=== PATIENT | female | born 1990 | race Hispanic/Latino ===

== ENCOUNTER 2017-06-18 01:41 | Emergency (ER) | payer BC ==
[~2017-06-18] VITALS: Ht 154.9 cm; Wt 69.9 kg
[~2017-06-18 01:41] MED LIST: DICYCLOMINE HCL20 MG PO; LINZESS PO; PANTOPRAZOLE SO40 MG PO; ZOFRAN ODT4 MG PO
[2017-06-18] MEDS ORDERED: SODIUM CHLORIDE 0.9% 1000ML 1,000 ML ONE ×2 (02:15→03:20)
[2017-06-18] MEDS ORDERED: MORPHINE SULFATE 4 MG/ML SYR IV ONE (02:15)
[2017-06-18] MEDS ORDERED: PROMETHAZINE HCL (IM) 25 MG/ML VIAL IM ONE (02:15)
[2017-06-18] MEDS ORDERED: PYRIDIUM100 MG PO (04:22)
[2017-06-18] MEDS ORDERED: PHENERGAN SUPP25 MG PO (04:22)
[2017-06-18] MEDS ORDERED: MACROBID 100 M100 MG PO (04:22)
[2017-06-18 04:38] VITALS: BP 149/80
== END 2017-06-18 04:30 | disposition home or self-care (01) ==
LOC: FSED 01:41
DX: R10.11 Right upper quadrant pain (principal); R10.31 Right lower quadrant pain; M54.5 Low back pain; N30.90 Cystitis, unspecified without hematuria; K58.0 Irritable bowel syndrome with diarrhea
CPT/HCPCS: 74176; 80048; 81025; 85025; 96360; 96365; 96374; 99284; J2270; J7030

== ENCOUNTER 2018-11-02 17:07 | Emergency (ER) | payer BC ==
[~2018-11-02] VITALS: Ht 154.9 cm; Wt 49.9 kg
[~2018-11-02 17:07] MED LIST changes: +MACROBID 100 M100 MG PO; +PHENERGAN SUPP25 MG PO; +PYRIDIUM100 MG PO
--- OUTSIDE RECORDS SUMMARY | 2018-11-02 17:09 | XMS REPORT | Summary of Care ---
Author Author Jess Gudino R.N. Organization Unknown Address Unknown Phone Unavailable Care Team Providers Care Electroformer Name Role Phone Jess Gudino R.N. Unavailable Unavailable OB[facility] N.P., ABBEY Unavailable Unavailable Unavailable Unavailable Functional Status Name Dates Details Functional status health issues are not documented Status: Name Dates Details Cognitive status health issues are not documented Status: Problems Name Dates Details H. pylori infection (041.86, A04.8) Status: Active Constipation (564.00, K59.00) Status: Active Constipation (564.00, K59.00) Status: Active Nausea and vomiting (787.01, R11.2) Status: Active Abdominal pain (789.00, R10.9) Status: Active Diarrhea (787.91, R19.7) Status: Active Acid reflux disease (530.81, K21.9) Status: Active Medications Name Dates Details Ondansetron HCl - 4 MG Oral Tablet TAKE EVERY 4-6 HOURS NEED FOR NAUSEA AND VOMITING Active Tylenol with Codeine #3 300-30 MG Oral Tablet TAKE EVERY 4-6 HOURS NEEDED FOR PAIN * Refills: 0 Active Dicyclomine HCl - 20 MG Oral Tablet TAKE 1 TABLET three to four times daily * Quantity: 120 Refills: 6 OBONYANO N.P., ABBEY * Start : 16-Jul-2016 Active Allergies and Adverse Reactions Name Dates Details No Known Drug Allergies (Allergy) Status: Active Past Medical History Name Dates Details History of gastritis (V12.79, Z87.19) Status: Resolved History of Helicobacter infection (V12.09, Z86.19) Status: Resolved History of Mini stroke (434.91, I63.9) Status: Resolved History of ovarian cyst (V13.29, Z87.42) Status: Resolved Procedures Procedure Dates Details Procedures not documented Immunization Name Dates Details Immunizations not documented Family History Name Dates Details Family history of cardiac disorder (V17.49, Z82.49) Status: Active Family history of cerebrovascular accident (CVA) (V17.1, Z82.3) Status: Active Name Dates Details Family history of systemic lupus erythematosus (V19.4, Z82.69) Status: Active Family history of diabetes mellitus (V18.0, Z83.3) Status: Active Family history of hypertension (V17.49, Z82.49) Status: Active Family history of High cholesterol (272.0, E78.00) Status: Active Family history of cerebrovascular accident (CVA) (V17.1, Z82.3) Status: Active Family history of Ulcer (707.9, L98.499) Status: Active Name Dates Details Family history of diabetes mellitus (V18.0, Z83.3) Status: Active Family history of hypertension (V17.49, Z82.49) Status: Active Social History Name Dates Details - Status: Name Dates Details Never smoker Vital Signs Date Test Result Details No Known Vitals to report Results Date Description Value Details Results not documented Plan of Care Name Dates Details Planned Observations Planned Goals not documented Instructions Name Dates Details Instructions not documented Encounters Appointment; BRENDA SHARMA M.D. Encounter Diagnosis: Problem not documented On: 20-Sep-2015 14:00 Appointment; BRENDA SHARMA M.D. Encounter Diagnosis: Problem not documented On: 02-Oct-2015 16:00 Appointment; BRENDA SHARMA M.D. Encounter Diagnosis: Problem not documented On: 05-Nov-2015 13:45 Appointment; BRENDA SHARMA M.D. Encounter Diagnosis: Problem not documented On: 16-Jul-2016 11:45 Appointment; BRENDA SHARMA M.D. Encounter Diagnosis: Problem not documented On: 31-Jul-2016 15:30 Appointment; BRENDA SHARMA M.D. Encounter Diagnosis: Problem not documented On: 01-Aug-2016 13:45
[2018-11-02] MEDS ORDERED: ONDANSETRON HCL INJ 2MG/ML 2ML 2 MG/ML VIAL IV STA (17:10)
[2018-11-02] MEDS ORDERED: SODIUM CHLORIDE 0.9% 1000ML 1,000 ML IV SCH (17:15)
[2018-11-02] MEDS ORDERED: KETOROLAC TROMETHAMINE 30 MG/ML VIAL IV NR (17:30)
[2018-11-02] MEDS ORDERED: ONDANSETRON HCL INJ 2MG/ML 2ML 2 MG/ML VIAL ONE (17:34)
[2018-11-02] MEDS ORDERED: SODIUM CHLORIDE 0.9% 1000ML 1,000 ML ONE (17:35)
[2018-11-02] MEDS ORDERED: MORPHINE SULFATE INJ 4 MG/ML INJ 1ML ONE (18:14)
[2018-11-02] MEDS ORDERED: CEFTRIAXONE SOD 1 GM/NS 50 ML 50 ML IV ONE ×2 (18:14→18:15)
[2018-11-02] MEDS ORDERED: ONDANSETRON ODT8 MG PO (18:22)
[2018-11-02] MEDS ORDERED: NAPROSYN500 MG PO (18:22)
[2018-11-02] MEDS ORDERED: BACTRIM DS TAB1 EACH PO (18:22)
--- NOTE | 2018-11-02 18:29 | Diagnostic Imaging Report ---
EXAM: CT of the abdomen and pelvis WITHOUT contrast HISTORY: Pelvic pain, abdominal pain, back pain, negative test COMPARISON: None available. TECHNIQUE: The abdomen and pelvis were scanned utilizing a multidetector helical scanner. Coronal and sagittal reformats are available. PROTOCOL: Routine IV CONTRAST: None, which limits sensitivity and specificity of evaluation of the soft tissues and vascular structures. ORAL CONTRAST: None, which limits sensitivity and specificity of evaluation of the bowel. RADIATION DOSE: Total DLP: 301.4 mGy*cm Estimated effective dose: (DLP x 0.015 x size factor) Dose modulation, iterative reconstruction, and/or weight based adjustment of the mA/kV was utilized to reduce the radiation dose to as low as reasonably achievable. COMPLICATIONS: None FINDINGS: Paucity of intra-abdominal and intra-pelvic fat partially limits the evaluation. LOWER THORAX: Unremarkable. HEPATOBILIARY: No definite focal hepatic lesions. No biliary ductal dilatation. The gallbladder is unremarkable. SPLEEN: No splenomegaly. PANCREAS: No focal masses or ductal dilatation. ADRENALS: No adrenal nodule. KIDNEYS/URETERS: No hydronephrosis or solid mass lesion identified. A punctate 2 mm calcific density in the region of the left ureterovesicular junction. PELVIC ORGANS/BLADDER: The uterus is anteflexed. The urinary bladder is partially decompressed. PERITONEUM / RETROPERITONEUM: No free air or fluid. GI TRACT: On limited evaluation of the gastrointestinal tract, no dilation or wall thickening identified. Is not definitely seen, but there are no inflammatory changes about the cecum. LYMPH NODES: No pathologically enlarged lymph nodes. VESSELS: Appear unremarkable. BONES: No aggressive osseous lesion or acute fracture. Mild degenerative disc changes L5-S1. SOFT TISSUES: Unremarkable. IMPRESSION: 1. Possible 2 mm stone at the left ureterovesicular junction versus phlebolith. 2. No hydronephrosis. Signed by: Dr. Pablo Olmedo D.O., M.M.M. on 11/02/2018 6:26 PM
[2018-11-02] MEDS ORDERED: MORPHINE SULFATE 5 MG/ML VIAL IV NR (18:30)
[2018-11-02] MEDS ORDERED: ULTRAM50 MG PO (18:47)
[2018-11-02] MEDS ORDERED: COLACE100 MG PO (18:47)
[2018-11-02 18:57] VITALS: BP 127/65
[2018-11-02] MEDS ORDERED: METHYLPREDNISOLONE SOD SUCC 125 MG/2ML VIAL ONE (19:07)
[2018-11-02] MEDS ORDERED: DIPHENHYDRAMINE HCL INJ 50 MG/ML VIAL ONE (19:07)
[2018-11-02] MEDS ORDERED: FAMOTIDINE 20 MG/2 ML VIAL IV ONE (19:07)
== END 2018-11-02 18:59 | disposition home or self-care (01) ==
LOC: FSED 17:07
DX: N39.0 Urinary tract infection, site not specified (principal)
CPT/HCPCS: 74176; 80053; 81003; 81025; 85025; 87086; 99284; J0696; J1200; J1885; J2270; J2405; J2930; J7030